=== PATIENT | female | born 1975 | race Caucasian/White ===

== ENCOUNTER → 2016-04-30 | Outpatient (CLI) | payer OTHER | END | disposition home or self-care (01) | LOC: LAB 09:06 | PROVIDERS: ATTEND Obstetrics & Gynecology | DX: Z01.419 Encounter for gynecological examination (general) (routine) without abnormal findings (principal); I10 Essential (primary) hypertension ==

== ENCOUNTER → 2017-03-20 | Outpatient (CLI) | payer OTHER | END | disposition home or self-care (01) | LOC: GMAJ 16:40 | PROVIDERS: ATTEND Family Medicine | DX: Z00.00 Encounter for general adult medical examination without abnormal findings (principal) ==

== ENCOUNTER 2017-12-26 08:31 | Emergency (ER) | payer OTHER ==
[2017-12-26 08:48] VITALS: TEMP 97.5
--- NOTE | 2017-12-26 09:10 | RAD ---
EXAM DESCRIPTION: Ankle,Right 3 Views CLINICAL HISTORY: R ankle discomfort, injury COMPARISON: 28 December 2015 TECHNIQUE: 3 views right FINDINGS: Postsurgical changes are observed in the distal fibula. It remains unchanged from the previous exam. The ankle mortise is intact. Minimal spurring of the medial malleolus is observed. No fracture is detected. No joint effusion is seen. 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 IMPRESSION: Degenerative changes are observed in the right ankle. There is been no significant interval change from the previous exam. Electronically signed by: Dallin Storey MD 12/26/2017 9:08 AM CDT
--- NOTE | 2017-12-26 09:18 | ED.PDOC ---
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 Timing/Duration: 1-3 hours Severity: moderate Improving Factors: rest Worsening Factors: movement Associated Symptoms: other - see hpi Allergies/Adverse Reactions: Allergies Codeine Allergy (Verified 12/26/17 08:42) Vomitting Home Medications: Ambulatory Orders BuPROPion XL [Wellbutrin XL] 150 mg PO DAILY 12/26/17 Verapamil HCl ER [Isoptin Sr] 120 mg PO DAILY 12/26/17 Review of Systems - Review of Systems Constitutional: States: no symptoms reported EENTM: States: no symptoms reported Respiratory: States: no symptoms reported Cardiology: States: no symptoms reported Gastrointestinal/Abdominal: States: no symptoms reported Genitourinary: States: no symptoms reported Musculoskeletal: States: see HPI Skin: States: see HPI Neurological: States: no symptoms reported Past Medical History (General) - Patient Medical History Hx Stroke: No Hx Congestive Heart Failure: No Hx Hypertension: Yes Hx Diabetes: No Hx MRSA: No Surgical History: tonsillectomy, other - right ankle ORIF,btl - Vaccination History Hx Tetanus, Diphtheria Vaccination: No Hx Influenza Vaccination: Yes - 2018 Hx Pneumococcal Vaccination: No - Social History Hx Tobacco Use: Yes - Vape Hx Alcohol Use: No Hx Substance Use: No Hx Depression: No Feels Threatened In Home Enviroment: No - Activities of Daily Living Patient Lives Alone: No - Female History Patient is a Female of Child Bearing Age (10 -59 yrs old): Yes Hx Last Menstrual Period: 12/17/17 Patient : No Family Medical History - Family History Mother Living Status: Hx Family Congestive Heart Failure: Yes - dad Hx Family Diabetes: Yes - dad Hx Family Cancer: Yes - Small cell lung CA Hx Family;Other: Brother-AIDS Physical Exam - Physical Exam General Appearance: Alert, Comfortable, No apparent distress Ears, Nose, Throat: hearing grossly normal, normal ENT inspection Neck: non-tender, full range of motion, supple, normal inspection Respiratory: chest non-tender, lungs clear, normal breath sounds Cardiovascular/Chest: normal peripheral pulses, regular rate, rhythm, no murmur Peripheral Pulses: radial,right: 2+, radial,left: 2+, dorsalis pedis,right: 2+, dorsalis pedis,left: 2+ Gastrointestinal/Abdominal: non tender, soft Extremity: normal range of motion - right ankle,no instability/swelling, no pedal edema, no calf tenderness Neurologic: no motor/sensory deficits, alert, oriented x 3 Skin Exam: normal color, warm/dry, other - superficial linear skin abrasion left elbow Lymphatic: no adenopathy Progress - Progress Progress: 12/26/17 09:23 Vital Signs - 24 hr 12/26/17 08:40 Temperature 97.5 F L Pulse Rate [ 90 Right Radial] Respiratory 18 Rate Blood Pressure 117/81 [Right Arm] O2 Sat by Pulse 100 Oximetry - EKG/XRAY/CT XRAY: ankle - right no fracture,degenerative changes Departure - Departure Clinical Impression: Skin abrasion Sprain of ankle, right Qualifiers: Encounter type: initial encounter Involved ligament of ankle: unspecified ligament Qualified Code(s): S93.401A - Sprain of unspecified ligament of right ankle, initial encounter Time of Disposition: : Disposition: Discharge to Home or Self Care Condition: Good Departure Forms: ED Discharge - Pt. Copy, Patient Portal Self Enrollment Instructions: Ankle Sprain (DC) Referrals: Oswald Baxter MD [Primary Care Provider] - 1-2 Weeks Home Medications: Ambulatory Orders BuPROPion XL [Wellbutrin XL] 150 mg PO DAILY 12/26/17 Verapamil HCl ER [Isoptin Sr] 120 mg PO DAILY 12/26/17 Additional Instructions: May use over the counter Aleve or Ibuprofen 1-2 tablets 3 x a day for pain and Triple antibiotic Oint. apply to left elbow abrasion am/pm until better;follow up with primary Md 01 January 2018 for recheck as needed,May go back to work; continue with all home medications
[2017-12-26] MEDS ORDERED: TETANUS,DIPHTHERIA,PERTUSSIS 1 EA SYG IM ONE (09:25)
[2017-12-26 09:48] VITALS: BP 118/74; O2SAT 100
== END 2017-12-26 09:48 | disposition home or self-care (01) ==
LOC: ER 08:31
DX: S93.401A Sprain of unspecified ligament of right ankle, initial encounter (principal); S50.312A Abrasion of left elbow, initial encounter; I10 Essential (primary) hypertension; Z23 Encounter for immunization; Z79.899 Other long term (current) drug therapy; Z87.891 Personal history of nicotine dependence; Z88.5 Allergy status to narcotic agent; Y99.0 Civilian activity done for income or pay; Y92.69 Other specified industrial and construction area as the place of occurrence of the external cause

== ENCOUNTER → 2020-05-06 | Outpatient (CLI) | payer BC | LOC: GMAJ 13:35 | PROVIDERS: ATTEND Family Medicine | DX: Z79.899 Other long term (current) drug therapy (principal) ==